=== PATIENT | male | born 1950 ===

== ENCOUNTER 2021-07-15 14:39 | Observation (INO) ==
[2021-07-15] MEDS ORDERED: Isovue-370 500 ML BOTTLE IVP ONE (14:56)
[2021-07-15 15:10] LABS: Hematocrit 46.5 % (37.5-50.1); Hemoglobin 15.1 g/dL (12.9-16.9); Mean Corpuscular HGB Conc 32.5 g/dL (31.6-35.5); Mean Corpuscular Hemoglobin 29.8 pg (28.0-33.3); Mean Corpuscular Volume 91.9 fL (83.0-100.0); Mean Platelet Volume 9.2 fL (9.4-12.4); Platelet Count 170 K/mcL (140-400); Red Blood Count 5.06 M/mcL (4.19-5.50); Red Cell Distribution Width 13.1 % (11.5-14.5)
[2021-07-15 15:22] LABS: INR 1.1; Prothrombin Time 12.1 Seconds (9.4-12.1)
[2021-07-15 15:24] LABS: BUN/Creatinine Ratio 25 (6-26); Blood Urea Nitrogen 20 mg/dL (8-23); Calcium 9.4 mg/dL (8.6-10.3); Carbon Dioxide 29 mEq/L (23-29); Chloride 106 mEq/L (98-107); Glucose 82 mg/dL (70-105); Osmolality,Calculated 292 (280-300); Potassium 4.2 mEq/L (3.5-5.1); Sodium 140 mEq/L (136-145); eGFR For African Americans > 60 (> 60); eGFR For Non-African Americans > 60 (> 60)
[2021-07-15 18:10] LABS: Bilirubin,Urine Negative (Negative); Blood,Urine Negative (Negative); Clarity,Urine Clear (Clear); Color,Urine Light-Yellow (Yellow); Glucose,Urine (UA) Normal (Normal); Ketones,Urine Negative (Negative); Leukocyte Esterase,Urine Negative (Negative); Nitrite,Urine Negative (Negative); PH,Urine 6.5 pH Units (5.0-8.0); Protein,Urine Trace mg/dL (Neg-Trace); Specific Gravity,Urine > 1.030 (1.010-1.025); Urobilinogen,Urine Normal (Normal)
[2021-07-15] MEDS ORDERED: Ondansetron 4 MG/2 ML VIAL IVP PRN (21:31)
[2021-07-15] MEDS ORDERED: Naloxone 0.4 MG/ML INJ IVP PRN (21:31)
[2021-07-15] MEDS ORDERED: Acetaminophen 325 MG TABLET PO PRN (21:31)
[2021-07-15 21:50] LABS: Influenza A PCR Negative (Negative); Influenza B PCR Negative (Negative); Resp. Syncytial Virus PCR Negative (Negative); SARS-CoV-2 by PCR (In House) Negative (Negative)
[2021-07-15] MEDS ORDERED: Diclofenac Sodium (DR) 75 MG TABLET.DR PO PRN (21:58)
[2021-07-15] MEDS ORDERED: OXcarbazepine 150 MG TABLET PO SCH (22:00)
[2021-07-15] MEDS ORDERED: Perflutren Lipid Microsphere 1.3 ML in 0.9 % Sodium Chloride 8.7 ML IVP PRN (22:50)
[2021-07-16 04:07] LABS: Hematocrit 44.1 % (37.5-50.1); Hemoglobin 14.1 g/dL (12.9-16.9); Mean Corpuscular Hemoglobin 29.6 pg (28.0-33.3); Mean Corpuscular Volume 92.6 fL (83.0-100.0); Mean Platelet Volume 9.5 fL (9.4-12.4); Platelet Count 162 K/mcL (140-400); Red Blood Count 4.76 M/mcL (4.19-5.50); White Blood Count 4.9 K/mcL (4.3-11.1)
[2021-07-16 04:28] LABS: Estimated Average Glucose 137 mg/dl; Hemoglobin A1C 6.4 %
[2021-07-16 04:51] LABS: Vitamin B12 914 pg/mL (250-1100)
[2021-07-16 04:52] LABS: Vitamin D 25 Hydroxy 28 ng/mL (30-80)
[2021-07-16] MEDS: carBAMazepine 200 MG TABLET PO PRN ×2 (06:29→13:45)
[2021-07-16] MEDS ORDERED: *HR* OxyCODONE Immed Rel 5 MG TABLET PO ONE (06:38)
[2021-07-16] MEDS: Fenofibrate 54 MG TABLET PO SCH ×2 (10:18→13:16)
[2021-07-16] MEDS: lisinopriL 20 MG TABLET PO SCH ×2 (10:18→13:16)
[2021-07-16] MEDS: Aspirin Enteric Coated 81 MG Tablet PO SCH ×2 (10:18→13:16)
[2021-07-16] MEDS ORDERED: Baclofen 10 MG TABLET PO PRN (11:00)
[2021-07-16 11:24] VITALS: TEMP 98.4; O2SAT 97
[2021-07-16 15:15] VITALS: BP 127/70; PULSE 80
[2021-07-17 14:19] LABS: BUN/Creatinine Ratio 24 (6-26); Blood Urea Nitrogen 19 mg/dL (8-23); Calcium 8.8 mg/dL (8.6-10.3); Carbon Dioxide 25 mEq/L (23-29); Chloride 109 mEq/L (98-107); Chol/HDL Ratio 4.3 (0-4.9); Cholesterol 202 mg/dL (< 200); Glucose 112 mg/dL (70-105); HDL Cholesterol 47 mg/dL (40-59); Magnesium 1.9 mg/dL (1.6-2.6); Osmolality,Calculated 297 (280-300); Sodium 142 mEq/L (136-145); Triglycerides 839 mg/dL (< 150); eGFR For African Americans > 60 (> 60); eGFR For Non-African Americans > 60 (> 60)
== END 2021-07-16 18:25 | disposition home or self-care (01) ==
LOC: EMEROOARM 14:39 → 3NENU 14:39 → SUATTDRO 18:44 → 3NENU 19:40
PROVIDERS: ADMIT Internal Medicine; ATTEND Internal Medicine